=== PATIENT | male | born 1980 | race Two or more races ===

== ENCOUNTER 2019-08-31 20:42 | Emergency (ER) | payer OTHER ==
[2019-08-31 20:52] VITALS: BP 135/95
[2019-08-31] MEDS ORDERED: Cyclobenzaprine TAB* 10 MG PO ONE (21:01)
[2019-08-31] MEDS ORDERED: Ketorolac INJ* 30 MG/ML 1 ML VIAL IM ONE (21:02)
--- NOTE | 2019-08-31 21:12 | UC ---
Back Pain HPI - HPI Summary HPI Summary: 38-year-old male who has intermittent chronic back spasms to his mid back. He denies any injury. He states he has had this problem for 20 years and it usually will cause spasms for a few days and then go away however this week he' s had it for about 4 days without improvement. He denies any recent illness. Denies any fever or chills. No difficulty urinating. He denies any saddle anesthesia no numbness or tingling of his extremities. He has been using Motrin at home and applying heat to the sore area without improvement. He has not seen a specialist for this. He states this is his typical back spasm that he has usually lasts just a couple days and goes away however this week it has lasted 4 days. 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 The patient walked into the room without difficulty and does not appear to be in pain. He moves from the chair to the exam table without difficulty. - History of Current Complaint Chief Complaint: UCBackPain Stated Complaint: BACK SPASMS Time Seen by Provider: 08/31/19 20:46 Hx Obtained From: Patient Onset/Duration: Gradual Onset, Lasting Days - The back spasm started approximately 4 days ago., Still Present Timing: Intermittent Severity Initially: Mild Severity Currently: Mild Pain Intensity: 6 Character: Spasmodic - Patient states it is his mid upper back, not the spine, more the final muscles. Aggravating Factor(s): Movement, Lifting, Bending Alleviating Factor(s): Rest Associated Signs And Symptoms: Positive: Negative. Negative: Weakness, Numbness , Tingling, Abdominal Pain, Flank Pain, Bladder Incontinence, Bowel Incontinence , Pain with Weight Bearing - Allergies/Home Medications Allergies/Adverse Reactions: Allergies Allergy/AdvReac Type Severity Reaction Status Date / Time No Known Allergies Allergy Verified 08/31/19 20:52 Home Medications: Home Medications Ibuprofen TAB* [Advil TAB*] 400 mg PO ONCE PRN 08/31/19 [History Confirmed 08/31] PMH/Surg Hx/FS Hx/Imm Hx Previously Healthy: Yes - Surgical History Surgical History: None - Family History Known Family History: Positive: Non-Contributory - Social History Occupation: Student Alcohol Use: None Substance Use Type: None Smoking Status (MU): Never Smoked Tobacco Review of Systems All Other Systems Reviewed And Are Negative: Yes Musculoskeletal: Positive: Other: - Mid/upper back pain Neurological: Negative: Weakness, Paresthesia, Numbness Is Patient Immunocompromised?: No Physical Exam Triage Information Reviewed: Yes Appearance: Well-Appearing, No Pain Distress, Well-Nourished - Patient walked into the exam room without difficulty and moved from the chair to the table without difficulty. Vital Signs: Initial Vital Signs Temp 98.8 F 08/31/19 20:50 Pulse 90 08/31/19 20:50 Resp 16 08/31/19 20:50 BP 135/95 08/31/19 20:50 Pulse Ox 98 08/31/19 20:50 Respiratory: Positive: Lungs clear, Normal breath sounds, No respiratory distress, No accessory muscle use Cardiovascular: Positive: RRR, No Murmur, Pulses Normal, Brisk Capillary Refill Abdomen Description: Positive: Nontender, No Organomegaly, Soft. Negative: CVA Tenderness (R), CVA Tenderness (L) Bowel Sounds: Positive: Present Musculoskeletal Exam: Normal Musculoskeletal: Positive: Other: - Negative straight leg raise, mild pain on palpation to the paraspinal muscle areas mid back. Spine itself is nontender. Neurological: Positive: Alert, Muscle Tone Normal - Good peripheral pulses neuro sensation capillary refill, reflexes +2 at the knee. Psychological Exam: Normal Skin Exam: Normal Back Pain Course/Dx - Course Course Of Treatment: The patient is given Toradol 30 mg IM. He is to continue Motrin 600 mg at home every 8 hours and may alternate that with Tylenol every 4 hours. He is to apply heat to the sore areas. He is to avoid movements that cause pain. I am giving him a referral to the digital advertising specialist, Dr. Flores for further care. He is to avoid bending, lifting, pushing, pulling and any other movement that causes pain. - Differential Dx/Diagnosis Provider Diagnosis: Chronic back pain Discharge ED - Sign-Out/Discharge Documenting (check all that apply): Patient Departure All imaging exams completed and their final reports reviewed: No Studies - Discharge Plan Condition: Good Disposition: HOME Prescriptions: Cyclobenzaprine TAB* [Flexeril 10 MG TAB*] 10 mg PO TID PRN #15 tab PRN Reason: back pain Patient Education Materials: Chronic Back Pain (DC) Referrals: Annette Dwyer MD [Primary Care Provider] - Chris Flores MD [Medical Doctor] - Additional Instructions: Avoid movements that cause pain, avoid twisting, pushing, pulling, bending or lifting. Apply heat to the sore area. Continue to take Motrin 600 mg by mouth every 8 hours as needed for pain. May alternate with Tylenol every 4 hours. Do not operate machinery or drive while you are taking the muscle relaxant and no alcohol use while you are taking it. - Billing Disposition and Condition Condition: GOOD Disposition: Home - Attestation Statements Provider Attestation: This patient was not seen by me. I was available for consult. Chart reviewed RAY
== END 2019-08-31 21:20 | disposition home or self-care (01) ==
LOC: UCEAST 20:42
DX: M54.9 Dorsalgia, unspecified (principal); G89.29 Other chronic pain; M62.830 Muscle spasm of back
CPT/HCPCS: 96372; 99212; A9270-GY; G0463; J1885